=== PATIENT | male | born 1935 | race American Indian/Alaskan Native ===

== ENCOUNTER 2017-03-08 10:06 | Day surgery (SDC) | payer MEDICARE, OTHER ==
[~2017-03-08 10:06] MED LIST: ANCEF/STERILE WATER 2 GM/20 ML IV NR; HEPARIN SUB-Q NR
[2017-03-08] MEDS ORDERED: MARCAINE-EPI/PF 0.5%-1:200,000 INFILTRATI ONE (10:25)
[2017-03-08] MEDS ORDERED: NACL BACTERIOSTATIC INFILTRATI ONE (11:07)
--- NOTE | 2017-03-08 11:09 | Anesthesia Consultation ---
Anesthesia Consult and Med Hx Date of service: 03/08/17 - Airway Anesthetic Teeth Evaluation: Dentures (upper and lower) ROM Head & Neck: Adequate Mental/Hyoid Distance: Adequate Mallampati Class: Class II Intubation Access Assessment: Probably Good - Pre-Operative Health Status ASA Pre-Surgery Classification: ASA3 Proposed Anesthetic Plan: General - Pulmonary Hx Sleep Apnea: No (HIGH RISK ON SLEEP APNEA SCREEN) - Cardiovascular System Hx Hypertension: Yes - Other Systems Hx Alcohol Use: No Hx Substance Use: No Hx Cancer: No - Additional Comments Anesthesia Medical History Comments: advanced age
--- NOTE | 2017-03-08 11:09 | Anesthesia Day of Surgery ---
Anesthesia Day of Surgery - Day of Surgery Patient Examined: Yes Patient H&P Reviewed: Yes Patient is NPO: Yes Beta Blockers: Yes
[2017-03-08] MEDS ORDERED: VERSED IV NR (12:00)
[2017-03-08] MEDS ORDERED: ZOFRAN IV PRN (12:00)
[2017-03-08] MEDS ORDERED: PEPCID IV NR (12:00)
[2017-03-08] MEDS ORDERED: NACL 0.9% 1000 ML 1,000 ML IV SCH (12:00)
[2017-03-08] MEDS ORDERED: DILAUDID ONE (12:01)
[2017-03-08] MEDS ORDERED: ZOFRAN ONE (12:01)
[2017-03-08] MEDS ORDERED: DIPRIVAN 10 MG/ML IV ONE (12:01)
[2017-03-08] MEDS ORDERED: ZEMURON IV ONE (12:01)
[2017-03-08] MEDS ORDERED: DECADRON ONE (12:01)
[2017-03-08] MEDS ORDERED: XYLOCAINE MPF 2% ONE (12:02)
[2017-03-08] MEDS ORDERED: PERCOCET 5/325 PO PRN ×2 (12:15→14:56)
[2017-03-08] MEDS ORDERED: NACL 0.9% IR ONE (13:16)
[2017-03-08] MEDS ORDERED: MARCAINE-EPI 0.5%-1:200,000 INFILTRATI ONE ×2 (13:16)
[2017-03-08] MEDS ORDERED: NACL 0.9% 1000 ML 1,000 ML ONE (13:38)
--- NOTE | 2017-03-08 13:51 | Short Stay Summary ---
Short Stay Documentation Date of service: 03/08/17 - History H&P: obtained from office - Allergies and Medications Current Medications: Allergies No Known Allergies Allergy (Verified 03/08/17 11:30) Home Medications Medication Instructions Recorded Confirmed Last Taken Type Aspirin [Adult Low Dose Aspirin EC] 81 mg PO DAILY 02/28/17 03/08/17 02/27/17 History Bisoprolol/Hctz [Ziac 2.5-6.25] 1 each PO DAILY 02/28/17 03/08/17 03/08/17 08: 30 History Active Medications Cefazolin Sodium (Ancef/Sterile Water 2 Gm/20 Ml) 2 gm IV PREOP NR Stop: 03/08/17 23:59 Famotidine (Pepcid) 20 mg IV PREOP NR Stop: 03/08/17 23:59 Last Admin: 03/08/17 11:40 Dose: 20 mg Heparin Sodium (Porcine) (Heparin) 5,000 unit SUB-Q PREOP NR Stop: 03/08/17 23:59 Last Admin: 03/08/17 11:42 Dose: 5,000 unit Hydromorphone HCl (Dilaudid) 0.25 mg IV Q10MIN PRN PRN Reason: Pain, Moderate (4-6) Stop: 03/08/17 15:00 Sodium Chloride (Nacl 0.9% 1000 Ml) 1,000 mls @ 75 mls/hr IV DIRECT SPRING Last Admin: 03/08/17 11:39 Dose: 75 mls/hr Midazolam HCl (Versed) 1 mg IV PREOP NR Stop: 03/08/17 23:59 Last Admin: 03/08/17 11:44 Dose: 1 mg - Brief post op/procedure progress note Date of procedure: 03/08/17 Pre-op diagnosis: left inguinal hernia Post-op diagnosis: other (incarcerated left inguinal hernia) Procedure: laparoscopic left incarcerated inguinal hernia repair with mesh Anesthesia: KUMAR, local Surgeon: ASHLYN CURTIS Estimated blood loss: none Pathology: none Condition: stable - Disposition Condition at discharge: Good Disposition: DC-01 TO HOME OR SELFCARE Short Stay Discharge Plan Activity: no restrictions Diet: regular Wound: remove dressing (03/10/17 and then may shower) Special Instructions: other (ice pack to the left groin for 1-2 days to help reduce pain and swelling) Follow up with: DOTTIE CLAIRE MD [Primary Care Provider] - 7 Days ASHLYN CURTIS MD [Staff Physician] - 7 Days Prescriptions: oxyCODONE /ACETAMINOPHEN [Percocet 5/325] 1 - 2 tab PO Q4HR PRN #40 tab PRN Reason: Pain
[2017-03-08] MEDS ORDERED: ROBINUL ONE (13:56)
[2017-03-08] MEDS ORDERED: NEOSTIGMINE ONE (13:56)
[2017-03-08] MEDS: DILAUDID IV PRN ×4 (14:17→15:01)
--- NOTE | 2017-03-08 15:28 | Post Anesthesia Evaluation ---
- Post Anesthesia Evaluation Patient Participated: Yes Airway Patent: Yes Stable Respiratory Function: Yes Temp > 96.8F: Yes Pain Manageable: Yes Adequeate Hydration: Yes Anesthesia Complications: No
[2017-03-08 16:24] VITALS: BP 142/86
--- NOTE | 2017-03-08 19:34 | Operative Report ---
PREOPERATIVE DIAGNOSIS: Left inguinal hernia. POSTOPERATIVE DIAGNOSIS: Incarcerated left inguinal hernia. PROCEDURE: Laparoscopic left incarcerated inguinal hernia repair with mesh. SURGEON: Ricardo Aiken MD ANESTHESIA: General and local. ESTIMATED BLOOD LOSS: Minimal. SPECIMEN: None. COMPLICATIONS: None. INDICATIONS: This is an 82-year-old gentleman who has a symptomatic left inguinal hernia who presents now for repair. OPERATIVE COURSE: The patient was brought to the operating room, identified, and placed in the supine position. General anesthesia was achieved. His abdomen was prepped and draped in usual manner. Prior to all incisions, the area was infiltrated with 0.25% Marcaine. A supraumbilical 10 mm incision was made using a Veress needle technique. The abdomen was insufflated to 15 mmHg pressure. A 10 mm trocar was inserted using a 30-degree 10 mm telescope. The other trocars were placed under direct vision, which included the left and right lateral 5 mm ports. The abdomen was explored. He had no hernia on the right. On the left side, he had a large direct inguinal hernia with incarceration of urachal fold and the bladder. We proceeded to take down the peritoneal lining taken the peritoneal lining off the gonadal vessels, epigastric vessels and vas deferens with care being taken not to injure those structures. We then reduced the hernia by reducing the urachal fold and bladder out of the hernia defect meaning with sharp and blunt dissection very minimal cautery was needed because of the medial location of the defect. We dissected further over across the pubic tubercle and symphysis pubis to cross the midline. Once this was accomplished, we introduced a 6 x 4 inch Parietex single-sided mesh and tacked it once to Zak's ligament, once across the superior aspect of the pubic tubercle without going into the periosteum and 3 times across the anterior abdominal wall with care being taken not to injure the epigastric vessels or injure the nerves laterally. Once we were satisfied, the mesh was in good position. We then reperitonealized the abdomen with the tacker and then removed the ports under direct vision. No signs of bleeding from the port sites. We evacuated the CO2 and closed the fascia in the 10 mm port site with a 0 Vicryl and then closed all the skin incisions with a 4-0 Vicryl suture, Steri-Strips, and bandage. He tolerated the procedure well without complications. JOB# [id number] MIKAYLA/NTS
== END 2017-03-08 16:40 | disposition home or self-care (01) ==
LOC: OR 10:06
PROVIDERS: ATTEND Surgery
DX: K40.30 Unilateral inguinal hernia, with obstruction, without gangrene, not specified as recurrent (principal); I10 Essential (primary) hypertension; Z79.899 Other long term (current) drug therapy
CPT/HCPCS: 36415; 49650; 84132; C1781; J0690; J1100; J1170; J1644; J2250; J2405; J2704; J2710; J7030